=== PATIENT | male | born 1985 | race Caucasian/White ===

== ENCOUNTER 2016-12-25 00:45 | Emergency (ER) | payer OTHER ==
[~2016-12-25] VITALS: Ht 182.9 cm; Wt 104.3 kg
[2016-12-25 00:54] VITALS: BP 151/98
[2016-12-25] MEDS: LORazepam 2 MG/ML VIAL IM/IVP ONE (01:29)
[2016-12-25 02:12] VITALS: BP 145/83
== END 2016-12-25 02:12 | disposition home or self-care (01) ==
LOC: MED 00:45
DX: F41.0 Panic disorder [episodic paroxysmal anxiety] (principal); F41.9 Anxiety disorder, unspecified
CPT/HCPCS: 80305; 93005; 96372; 99285; J2060